=== PATIENT | female | born 1985 | race African-American/Black ===

== ENCOUNTER 2017-02-15 21:37 | Emergency (ER) | payer SELFPAY | END 2017-02-15 22:23 | disposition home or self-care (01) | LOC: MADERS 21:37 | DX: Z76.0 Encounter for issue of repeat prescription (principal); E10.9 Type 1 diabetes mellitus without complications; Z79.899 Other long term (current) drug therapy | CPT/HCPCS: 99281 ==

== ENCOUNTER 2018-01-28 18:45 | Emergency (ER) | payer SELFPAY ==
[2018-01-28] MEDS ORDERED: Naproxen 500 MG TAB ONE (20:02)
[2018-01-28] MEDS ORDERED: Sulfameth/Trimethoprim DS 800-160mg TAB ONE (20:02)
[2018-01-28] MEDS ORDERED: cefTRIAXone\\ROCEPHIN 1 GM VIAL ONE (20:03)
== END 2018-01-28 20:30 | disposition home or self-care (01) ==
LOC: MADERS 18:45
DX: N61.1 Abscess of the breast and nipple (principal); E10.9 Type 1 diabetes mellitus without complications
CPT/HCPCS: 96372; J0696; J2001

== ENCOUNTER 2018-03-25 19:49 | Emergency (ER) | payer OTHER, SELFPAY ==
[2018-03-25 21:11] LABS: Bilirubin Negative (Negative); Blood, Urine Negative (Negative); Clarity Clear (Clear); Glucose, Urine (Dipstick) 500 mg/dL (Negative); Leukocyte Negative (Negative); Nitrite Negative (Negative); Protein, Urine (Dipstick) Trace mg/dL (Neg-Trace); Specific Gravity, Urine 1.015 (1.005-1.030); Urobilinogen 0.2 mg/dL (0.2-1.0); pH, Urine 5.5 (5.0-9.0)
[2018-03-25 21:18] LABS: ALT (SGPT) 13 U/L (8-55); AST (SGOT) 13 U/L (5-34); Albumin 3.9 g/dL (3.5-5.0); Alkaline Phosphatase 89 U/L (40-150); Anion Gap 16 mmol/L (10-20); BUN (Urea Nitrogen) 18 mg/dL (7.0-18.7); Bilirubin, Total 0.2 mg/dL (0.2-1.2); Calc. Creatinine Clearance 0 mL/min (70-130); Calcium 10.4 mg/dL (7.8-10.44); Carbon Dioxide 27 mmol/L (22-29); Chloride 99 mmol/L (98-107); Estimated GFR-MDRD Greater than 90; Globulin 3.4 g/dL (2.4-3.5); Glucose 245 mg/dL (70-105); Protein, Total 7.3 g/dL (6.0-8.3); Sodium 138 mmol/L (136-145)
[2018-03-25 21:20] LABS: Eosinophils 1 % (0-10); Hemoglobin 12.1 g/dL (12.0-16.0); Hypochromia SLIGHT = 6-15 cells (100X) (0-5/hpf); Lymphocytes 23 % (21-51); MDiff Complete? YES; Mean Corpuscular HGB CONC 32.5 g/dL (32.0-36.0); Mean Corpuscular Hemoglobin 29.5 pg (27.0-31.0); Mean Corpuscular Volume 90.7 fl (81.0-99.0); Mean Platelet Volume 6.8 fL (7.4-10.4); Monocytes 10 % (0-10); Neutrophil 61 % (42-75); PLT Morphology Comment Appears Adequate; Platelet Count 370 thou/uL (130-400); RBC Distribution Width 14.3 % (11.5-14.5); RBC Morphology Abnormal; Reactive Lymphocytes 5 % (0-10); Red Blood Cell (RBC) Count 4.11 mill/uL (4.20-5.40); White Blood Cell (WBC) Count 6.4 thou/uL (4.8-10.8)
== END 2018-03-25 21:46 | disposition home or self-care (01) ==
LOC: MADERS 19:49
DX: N61.0 Mastitis without abscess (principal); E10.9 Type 1 diabetes mellitus without complications
CPT/HCPCS: 10060; 36415; 80053; 81003; 85025; 87070; 87205

== ENCOUNTER 2018-12-16 13:35 | Emergency (ER) | payer SELFPAY ==
[2018-12-16] MEDS ORDERED: Sodium Chloride 0.9% 2,000 ML ONE (14:12)
[2018-12-16 14:29] LABS: Bilirubin Negative (Negative); Blood, Urine Negative (Negative); Clarity Clear (Clear); Glucose, Urine (Dipstick) >=1000 mg/dL (Negative); Leukocyte Negative (Negative); Nitrite Negative (Negative); Protein, Urine (Dipstick) Negative (Neg-Trace); Specific Gravity, Urine 1.015 (1.005-1.030); Urobilinogen 0.2 mg/dL (0.2-1.0)
[2018-12-16 14:42] LABS: Anion Gap 17 mmol/L (10-20); BUN (Urea Nitrogen) 15 mg/dL (7.0-18.7); Calc. Creatinine Clearance 0 mL/min (70-130); Calcium 10.1 mg/dL (7.8-10.44); Carbon Dioxide 26 mmol/L (22-29); Chloride 97 mmol/L (98-107); Estimated GFR-MDRD 77; Glucose 390 mg/dL (70-105); Sodium 136 mmol/L (136-145)
== END 2018-12-16 16:36 | disposition home or self-care (01) ==
LOC: MADERS 13:35
DX: E11.65 Type 2 diabetes mellitus with hyperglycemia (principal); J02.9 Acute pharyngitis, unspecified; B00.9 Herpesviral infection, unspecified; B37.9 Candidiasis, unspecified; E87.2 Acidosis
CPT/HCPCS: 36416; 80048; 81003; 96360; 96361; J7050

== ENCOUNTER 2019-04-06 17:05 | Emergency (ER) | payer SELFPAY | END 2019-04-06 17:30 | disposition home or self-care (01) | LOC: MADERS 17:05 | DX: Z76.0 Encounter for issue of repeat prescription (principal); E10.9 Type 1 diabetes mellitus without complications | CPT/HCPCS: 99281 ==

== ENCOUNTER 2019-06-01 17:21 | Emergency (ER) | payer SELFPAY | END 2019-06-01 17:52 | disposition home or self-care (01) | LOC: MADERS 17:21 | DX: B00.1 Herpesviral vesicular dermatitis (principal); E10.9 Type 1 diabetes mellitus without complications; Z79.4 Long term (current) use of insulin; Z79.899 Other long term (current) drug therapy | CPT/HCPCS: 99282 ==

== ENCOUNTER 2019-12-13 09:45 | Emergency (ER) | payer SELFPAY ==
[2019-12-13] MEDS ORDERED: Lidocaine Viscous Sol 2% 15 ml UD Cup ONE (10:09)
[2019-12-13] MEDS ORDERED: Clindamycin 150 MG CAP ONE (10:32)
[2019-12-13] MEDS ORDERED: Acetaminophen 500 MG TAB ONE (11:00)
== END 2019-12-13 11:17 | disposition home or self-care (01) ==
LOC: MADERS 09:45
DX: K04.7 Periapical abscess without sinus (principal); K02.9 Dental caries, unspecified; E10.9 Type 1 diabetes mellitus without complications
CPT/HCPCS: 41800

== ENCOUNTER 2020-03-22 14:25 | Emergency (ER) | payer SELFPAY | END 2020-03-22 14:55 | disposition home or self-care (01) | LOC: MADERS 14:25 | DX: A60.04 Herpesviral vulvovaginitis (principal); E10.9 Type 1 diabetes mellitus without complications | CPT/HCPCS: 99283 ==

== ENCOUNTER 2020-08-30 12:56 | Emergency (ER) | payer SELFPAY | END 2020-08-30 13:55 | disposition home or self-care (01) | LOC: MADERS 12:56 | DX: Z76.0 Encounter for issue of repeat prescription (principal); L73.9 Follicular disorder, unspecified; E10.9 Type 1 diabetes mellitus without complications | CPT/HCPCS: 36416; 99283 ==